=== PATIENT | female | born 1970 | race Caucasian/White ===

== ENCOUNTER 2018-02-02 19:08 | Emergency (ER) | payer SELFPAY ==
[2018-02-02 19:08] VITALS: BP 120/84; PULSE 134; RESP 18; TEMP 36.4; O2SAT 92; BMI 29.9
[2018-02-02] MEDS: Ketamine HCl 500 MG/5 ML Vial 200 MG IV (19:13)
[2018-02-02 19:19] VITALS: O2SAT 100
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
[2018-02-02 19:25] VITALS: BP 146/92; PULSE 117; RESP 13; O2SAT 100
[2018-02-02] MEDS: Cefazolin 1 GM/50 ML BAG IV (19:25)
[2018-02-02 19:27] VITALS: BP 120/84; PULSE 134; RESP 18; O2SAT 92
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
[2018-02-02 19:30] LABS: Absolute Lymphocyte Count 4.43 X10^3/ul (0.83-4.51); Absolute Neutrophil Count 6.5 X10^3/uL (2.0-7.7); Basophil# 0.03 X10^3/uL; Basophil% 0.3 % (0-1); Eosinophil# 0.14 X10^3/uL; Eosinophils% 1.2 % (0-5); Hematocrit 39.7 % (37-47); Hemoglobin 13.3 g/dl (12.0-15.0); Lymphocyte # 4.43 X10^3/ul (4.0); Lymphocyte % 37.9 % (19-41); Mean Corp Hgb Conc 33.5 g/gl (32-36); Mean Corpuscular Hgb 30.4 pg (27.0-32.0); Mean Corpuscular Volume 90.8 fL (81-99); Mean Platelet Vol. 9.6 fl (6.2-12.0); Monocyte% 5.1 % (0-10); Neutrophil # 6.45 X10^3/uL (2.7-7.7); Neutrophil % 55.1 % (47-70); Platelet Count 267 K/mm3 (150-450); RBC Distribution Width CV 13.5 % (11.6-14.6); RBC Distribution Width SD 44.9 fl (35.1-43.9); Red Blood Count 4.37 M/mm3 (4.2-5.4); White Blood Count 11.7 K/mm3 (4.4-11.0)
[2018-02-02] MEDS: Rocuronium Bromide 50 MG/5 ML Vial 100 MG IV (19:32)
[2018-02-02 19:33] LABS: POSITIVE COUNT NO; POSITIVE DIFFERENTIAL NO; POSITIVE MORPHOLOGY NO
[2018-02-02 19:34] LABS: International Normalized Ratio 1.1; Prothrombin Time (Protime)PT. 14.3 SECONDS (11.7-14.9)
[2018-02-02 19:35] LABS: Partial Thromboplast Time 29.2 Seconds (24.1-36.2)
--- NOTE | 2018-02-02 19:38 | ED.RN ---
TDAP ORDER UNABLE TO BE PLACED BY RN OR PHYSICIAN. TDAP GIVEN AT 1917 IN LEFT LEG. LOT# [id number] [id number] 11/19/19
[2018-02-02 19:42] LABS: Alcohol, Blood (Medical)-Serum < 3.0 mg/dL
--- NOTE | 2018-02-02 19:45 | ED.RN ---
NURSE REPORT CALLED TO TAMMY DE LEON AT [facility] ED. DENIES QUESTIONS. UPDATED IN ROUTE VIA AIR WITH BROOKS
[2018-02-02 19:51] LABS: AST(SGOT) 24 U/L (15-37); Alanine Aminotransfer ALT/SGPT 18 U/L (13-56); Albumin, Serum 3.9 g/dL (3.2-5.0); Alkaline Phosphatase 104 U/L (45-117); Anion Gap 10 (5-15); BUN 11 mg/dL (7-18); BUN/Creat Ratio 11.9 RATIO (10-20); Bilirubin, Direct 0.13 mg/dL (0.00-0.30); Calcium,Total 8.8 mg/dL (8.5-10.1); Chloride 106 mmol/L (98-107); Creatinine, Serum 0.92 mg/dL (0.55-1.02); EST Glomerular Filtration Rate 69 mL/min (>60); Est Glom Filt Rate - Afr Amer 83 mL/min (>60); Estimated Creatinine Clearance 59.15 ml/min; Globulin 3.4 g/dL (2.2-4.2); Glucose 120 mg/dL (74-106); Potassium 3.1 mmol/L (3.5-5.1); Protein, Total 7.3 g/dL (6.4-8.2); Sodium Level 138 mmol/L (136-145)
== END 2018-02-02 19:30 | disposition short-term general hospital (02) ==
LOC: ED 19:27
PROVIDERS: Emergency Provider Emergency Medicine
DX: S02.11GA Other fracture of occiput, right side, initial encounter for closed fracture (principal); S06.309A Unspecified focal traumatic brain injury with loss of consciousness of unspecified duration, initial encounter; S36.899A Unspecified injury of other intra-abdominal organs, initial encounter; V29.50XA Motorcycle passenger injured in collision with unspecified motor vehicles in traffic accident, initial encounter; Y93.9 Activity, unspecified; Y92.9 Unspecified place or not applicable; Y99.9 Unspecified external cause status
CPT/HCPCS: 31500; 51702; 80048; 80076; 80320; 85025; 85610; 85730; 90715; 96374; 96375; 99251; 99285; J7030; A4216; G0463; G0480

== ENCOUNTER 2018-02-15 18:20 | Inpatient (IN) | payer MEDICAID, SELFPAY ==
--- NOTE | 2018-02-15 18:20 | DT_ITS ---
This patient was seen during an EMR downtime February 09, 2018 - February 16, 2018. This patient may have a combination of paper and electronic documentation or all paper documentation. All documentation is viewable within the e-chart portion of [facility] for each patient visit.
[2018-02-16 05:59] LABS: Hematocrit 31.9 % (37-47); Hemoglobin 10.3 g/dl (12.0-15.0); Mean Corp Hgb Conc 32.3 g/gl (32-36); Mean Corpuscular Hgb 30.5 pg (27.0-32.0); Mean Corpuscular Volume 94.4 fL (81-99); Mean Platelet Vol. 9.7 fl (6.2-12.0); Platelet Count 691 K/mm3 (150-450); RBC Distribution Width CV 15.5 % (11.6-14.6); RBC Distribution Width SD 50.9 fl (35.1-43.9); Red Blood Count 3.38 M/mm3 (4.2-5.4); White Blood Count 11.9 K/mm3 (4.4-11.0)
[2018-02-16] MEDS: Enoxaparin 30 MG/0.3 ML Syringe SC (06:00)
[2018-02-16 06:28] LABS: ALB/GLOB Ratio 0.8 RATIO (0.9-2.4); AST(SGOT) 18 U/L (15-37); Alanine Aminotransfer ALT/SGPT 23 U/L (13-56); Albumin, Serum 3.2 g/dL (3.2-5.0); Alkaline Phosphatase 175 U/L (45-117); Anion Gap 9 (5-15); BUN 17 mg/dL (7-18); BUN/Creat Ratio 25.3 RATIO (10-20); Calcium,Total 8.8 mg/dL (8.5-10.1); Chloride 104 mmol/L (98-107); Creatinine, Serum 0.67 mg/dL (0.55-1.02); EST Glomerular Filtration Rate 99 mL/min (>60); Est Glom Filt Rate - Afr Amer 120 mL/min (>60); Globulin 3.8 g/dL (2.2-4.2); Glucose 96 mg/dL (74-106); Potassium 4.1 mmol/L (3.5-5.1); Sodium Level 138 mmol/L (136-145)
[2018-02-16 06:42] LABS: Scan Indicated on CBC? Y/N NO
[2018-02-16] MEDS: Amantadine 100 MG Capsule PO ×2 (09:00→13:00)
[2018-02-16] MEDS: Senna/Docusate Sodium 1 Tablet 2 TABLET PO (10:00)
[2018-02-16] MEDS: DULoxetine Hcl 60 MG Capsule PO ×2 (10:00→20:49)
--- NOTE | 2018-02-16 10:15 | PCM.RU.PYE ---
Admission Information Status Changes from Prescreening?: No changes Identified Actual Problem List:: Pain, ALteration in Cmfrt, Cognitve Impr/Memory Loss, Alteration in Sleep, Alteration in Nutrition, Mobility Impaired, Self Care Deficit, Ineffective Communication, Know.Dfct/Disease Process, Know.Dfct of Medicaitons, Ineffect.D/C Plan r/t Psy Potential Problem List:: DVT, Bleeding, Infection, UTI, Aspiration, Falls, Skin Integrity, Depression Risk of Complications DVT: LMWH, RONALD Hose, Sequential Compression Device Bleeding: Monitor Lab Values, Nursing to Teach Precautions for anti-coagulation therapy., Wound, if applicable, to be assessed every shift., Stroke patients assessed for lethargy or change in status. Infection: Clinical Staff to Monitor for S/S of infection:, S/S of infection include fever, redness, warmth, etc. Urinary Tract Infection: Monitor for frequency, burning, discomfort, or incontinence., Nursing will obtain urine sample for urinalysis and C&S when ordered. Aspiration: Clinical staff will monitor for coughing, drooling, congestion., Speech will evaluate swallowing and dsyphasia., Nursing will monitor patient swallowing during meals. Falls: Patient will be evaluated for Fall Precautions, Patient will be placed on Fall Precautions as indicated per protocol. Skin Breakdown: Nursing will assess skin daily using assessment tool., Nursing will place on Skin Breakdown Precautions as indicated. Pain: Clinical staff will assess patient's pain level per protocol., Medications will be given, if needed, and the pain level reassessed., Other methods: Massage, distraction, decrease stimulus, etc. used PRN. Plan of Care Patient requires physician specializing in physical medicine and rehab oversight to provide close medical supervision of rehab issues including: Pain Management, Sleep Problems, Bowel and Bladder, Medical and co-morbidity Management, DVT prophylaxis, Rehabilitation Leadership, Coordination of treatment team Patient needs Physical Therapy: For a minimum of 1 hour, At least 5 out of 7 days Patient needs Physical Therapy to improve:: Mobility, Mobility, Mobility, Strengthening, Transfers, Stretching, ROM, Endurance, Stairs, Gait, Balance Patient needs Occupational Therapy: For a minimum of 1 hour, At least 5 out of 7 days Patient needs Occupational Therapy to improve ADL's incl.: Eating, Grooming, Bathing, Dressing, Toileting, Toilet transfers, Community Reintegration, Higher functioning activities, Household tasks, Adaptive Equipment, Splinting, Other activities as determined Patient requires speech therapy: For a minimum of 1 hour, At least 5 out of 7 days Patient requires speech therapy for: Swallowing, Cognition, Language Skills, Compensatory Strategies Patient requires 24/ Rehabilitation Nursing for: Pain Issues, Identifying and preventing risk factors, Monitoring and reporting current medical conditions, Assisting with ambulation, transfer, and all ADL's, Teaching patients about disease process and medications, Family teaching, Providing safe environment, Bowel and Bladder Issues, Skin integrity, Medication Management Patient needs Deoiling Machine Operator/ Case Management for: Discharge Planning, Arranging Home Equipment or Services, Family Interventions Patient needs Dietary and Nutrition Services for: Adequate Nutrition, Nutritional Supplements, Nutritional Education Goals Patient will remain: free from falls, or injury at time of discharge. Patient will perform bed mobility at: MOD I level of assist. Patient will complete transfers from bed to chair at: MOD I level of assist. Patient will ambulate: 100 feet, with MOD I assist, with LRD Patient will complete upper body dressing at: MOD I level of assist. Patient will complete lower body dressing at: MOD I level of assist. Patient will complete toileting at: MOD I level of assist. Patient will perform bathing at: MOD I level of assist. Patient will complete grooming at: MOD I level of assist. Patient will complete home management skills at: MOD I level of assist. Patient will achieve: 12 stairs, at MOD I assist Patient will have pain level of: of 3 or less Patient's skin will: remain intact, free from infection. Patient will receive: adequate nutrition. Discharge Planning Pt Prognosis for Sig. Practical Improv. w/in Reasonable Time: Good Anticipated D/C Destination: Home with Outpt Therapy Was Preadmission Assessment Accurate?: Yes
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
[2018-02-16] MEDS: oxyCODONE 5 MG Tablet PO (10:30)
[2018-02-16 20:30] VITALS: PULSE 70; RESP 16; O2SAT 96
[2018-02-16] MEDS: traZODone 50 MG Tablet PO (20:49)
[2018-02-17] MEDS: Enoxaparin 30 MG/0.3 ML Syringe SC (05:12)
[2018-02-17 07:35] VITALS: O2SAT 96
[2018-02-17 10:00] VITALS: BP 117/24; PULSE 75; RESP 17; TEMP 37.6; O2SAT 94
[2018-02-17] MEDS: DULoxetine Hcl 60 MG Capsule PO ×2 (10:32→21:37)
[2018-02-17] MEDS: Amantadine 100 MG Capsule PO ×2 (10:32→13:23)
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
--- NOTE | 2018-02-17 14:01 | PN.NEURO_ITS ---
Subjective: Patient sleeping quietly in bed. Easily arousable. Tolerating therapy. Denies any shortness of breath, blurry vision, or double vision. No issues with GI/ . Incision site is well approximated, sutures are C/D/I, open to air. - Physical Exam General: Alert, Oriented x3, Cooperative HEENT: Atraumatic, PERRLA, EOMI, Normocephalic Neck: Supple, No JVD, Negative Carotid Bruits Lungs: Clear to auscultation, Normal air movement Cardiovascular: Regular rate, No murmurs Abdomen: Bowel Sounds Present, Soft, Non Tender Extremities: No edema, Capillary Refill Less than 3 Seconds Skin: No rashes, No breakdown Musculoskeletal: No Tenderness to Palpation of Joints or Extremities Neurological: Cranial nerves II-XII grossly intact Psych/Mental Status: Normal Affect, Appropriate, Alert and oriented to time, place, person, mood and affect Vital Signs Temp Pulse Resp BP Pulse Ox 99.6 F H 75 17 117/24 L 94 02/17/18 10:02/17/18 10:00 02/17/18 10:00 02/17/18 10:00 02/17/18 10:00 Oxygen Delivery Method Room Air Intake and Output for Last 24 Hours 02/15/18 02/16/18 02/17/18 23:59 23:59 23:59 Intake Total 100 / 100 Output Total 500 / 500 Balance -400 / -400 Active Medications Amantadine HCl (Symmetrel) 100 mg PO BID@0900,1300 [facility] Stop: 03/07/18 09:01 Last Admin: 02/17/18 13:23 Dose: 100 mg Bisacodyl (Dulcolax) 10 mg RECTAL .PRN X 1 PRN PRN Reason: Constipation Duloxetine HCl (Cymbalta) 60 mg PO BID [facility] Last Admin: 02/17/18 13:05 Dose: Not Given Enoxaparin Sodium (Lovenox) 30 mg SC DAILY@0600 [facility] Last Admin: 02/17/18 05:12 Dose: 30 mg Hydroxyzine Pamoate (Vistaril Pamoate Capsule) 25 mg PO BID PRN PRN PRN Reason: itching or anxiety Loratadine (Claritin) 10 mg PO DAILY PRN PRN PRN Reason: allergy symptoms Magnesium Hydroxide (Milk Of Magnesia) 30 ml PO .PRN X 1 PRN PRN Reason: Constipation Nicotine (Nicoderm Cq (Pbkc)) 21 mg TRANSDERM. DAILY [facility] Last Admin: 02/17/18 12:29 Dose: 21 mg Oxycodone HCl (Oxyir) 5 - 10 mg PO Q6H PRN PRN PRN Reason: SEVERE PAIN (6-06/17) Stop: 02/22/18 20:45 Last Admin: 02/16/18 10:30 Dose: 5 mg Senna/Docusate Sodium (Senokot-S, Mandi-Colace) 2 tablet PO DAILY [facility] Last Admin: 02/17/18 12:31 Dose: Not Given Trazodone HCl (Desyrel) 50 mg PO QHS [facility] Last Admin: 02/17/18 13:05 Dose: Not Given Medical Necessity - Tobacco Use Smoking Status: Unknown if ever smoked Assessment/Plan Debility s/p multiple trauma, primary deficit is language/cognitive. goal of therapy is restorationism of functional independence - Pt for gait and balance - Ot for adls - Speech therapy - Cognitive - PRN analgesics - Bowel protocol - Dvt prophylaxis: Lovenox, SCDs, Mike hoses - Right Rib Fractures 2-7 and sm rt pneumo - Aggressive Pulmonary toileting, IS Q1 hr while awake - Craniotomy incision site - incision is well approximated, sutures are C/D/I open to air - Hx Tobacco abuse - Nicotine patch, discussion on cessation benefits - Hx Depression - continue Cymbalta
[2018-02-17 20:30] VITALS: BP 116/16; PULSE 76; RESP 15; TEMP 36.9; O2SAT 94
[2018-02-17] MEDS: oxyCODONE 5 MG Tablet PO (20:45)
[2018-02-17] MEDS: traZODone 50 MG Tablet PO (21:37)
--- NOTE | 2018-02-18 02:35 | NURSING ---
Reviewed and agree with CROWNING INSPECTOR documentation and FIMS charting.
[2018-02-18] MEDS: Enoxaparin 30 MG/0.3 ML Syringe SC (05:55)
[2018-02-18] MEDS: oxyCODONE 5 MG Tablet PO ×2 (05:57→22:34)
[2018-02-18 07:00] VITALS: O2SAT 98
[2018-02-18] MEDS: Amantadine 100 MG Capsule PO ×2 (08:46→13:44)
[2018-02-18] MEDS: DULoxetine Hcl 60 MG Capsule PO ×2 (08:46→21:37)
[2018-02-18 09:29] VITALS: BP 99/61; PULSE 91; RESP 16; TEMP 36.6; O2SAT 96
--- NOTE | 2018-02-18 10:44 | PCM.PN.NEU ---
Subjective: Patient seen and examined. No new complaints. Tolerating therapy. Denies any headaches, blurry vision, or double vision. Tolerating regular diet. No issues with GI/. - Physical Exam General: Alert, Oriented x3, Cooperative HEENT: Atraumatic, PERRLA, EOMI, Normocephalic Neck: Supple, No JVD, Negative Carotid Bruits Lungs: Clear to auscultation, Normal air movement Cardiovascular: Regular rate, No murmurs Abdomen: Bowel Sounds Present, Soft, Non Tender Extremities: No edema, Capillary Refill Less than 3 Seconds Skin: No rashes, No breakdown Musculoskeletal: No Tenderness to Palpation of Joints or Extremities Neurological: Cranial nerves II-XII grossly intact Psych/Mental Status: Normal Affect, Appropriate, Alert and oriented to time, place, person, mood and affect Vital Signs Temp Pulse Resp BP Pulse Ox 97.8 F 91 16 99/61 96 02/18/18 09:29 02/18/18 09:29 02/18/18 09:29 02/18/18 09:29 02/18/18 09:29 Oxygen Delivery Method Room Air Weight: 55.1 kg Intake and Output for Last 24 Hours 02/16/18 02/17/18 02/18/18 23:59 23:59 23:59 Intake Total 100 / 100 Output Total 500 / 500 Balance -400 / -400 Active Medications Amantadine HCl (Symmetrel) 100 mg PO BID@0900,1300 [facility] Stop: 03/07/18 09:01 Last Admin: 02/18/18 08:46 Dose: 100 mg Bisacodyl (Dulcolax) 10 mg RECTAL .PRN X 1 PRN PRN Reason: Constipation Duloxetine HCl (Cymbalta) 60 mg PO BID [facility] Last Admin: 02/18/18 08:46 Dose: 60 mg Enoxaparin Sodium (Lovenox) 30 mg SC DAILY@0600 [facility] Last Admin: 02/18/18 05:55 Dose: 30 mg Hydroxyzine Pamoate (Vistaril Pamoate Capsule) 25 mg PO BID PRN PRN PRN Reason: itching or anxiety Loratadine (Claritin) 10 mg PO DAILY PRN PRN PRN Reason: allergy symptoms Magnesium Hydroxide (Milk Of Magnesia) 30 ml PO .PRN X 1 PRN PRN Reason: Constipation Nicotine (Nicoderm Cq (Pbkc)) 21 mg TRANSDERM. DAILY [facility] Last Admin: 02/18/18 08:46 Dose: 21 mg Oxycodone HCl (Oxyir) 5 - 10 mg PO Q6H PRN PRN PRN Reason: SEVERE PAIN (-06/17) Stop: 02/22/18 20:45 Last Admin: 02/18/18 05:57 Dose: 10 mg Senna/Docusate Sodium (Senokot-S, Mandi-Colace) 2 tablet PO DAILY [facility] Last Admin: 02/18/18 08:44 Dose: Not Given Trazodone HCl (Desyrel) 50 mg PO QHS [facility] Last Admin: 02/17/18 21:37 Dose: 50 mg Medical Necessity - Tobacco Use Smoking Status: Unknown if ever smoked Assessment/Plan Debility s/p multiple trauma, primary deficit is language/cognitive. goal of therapy is latter-day of functional independence - Pt for gait and balance - Ot for adls - Speech therapy - Cognitive - PRN analgesics - Bowel protocol - Dvt prophylaxis: Lovenox, SCDs, Mike hoses - Right Rib Fractures 2-7 and sm rt pneumo - Aggressive Pulmonary toileting, IS Q1 hr while awake - Craniotomy incision site - incision is well approximated, sutures are C/D/I open to air - Hx Tobacco abuse - Nicotine patch, discussion on cessation benefits - Hx Depression - continue Cymbalta
--- NOTE | 2018-02-18 10:47 | PN.NEURO_ITS ---
Subjective: Patient seen and examined. No new complaints. Tolerating therapy. Denies any headaches, blurry vision, or double vision. Tolerating regular diet. No issues with GI/. - Physical Exam General: Alert, Oriented x3, Cooperative HEENT: Atraumatic, PERRLA, EOMI, Normocephalic Neck: Supple, No JVD, Negative Carotid Bruits Lungs: Clear to auscultation, Normal air movement Cardiovascular: Regular rate, No murmurs Abdomen: Bowel Sounds Present, Soft, Non Tender Extremities: No edema, Capillary Refill Less than 3 Seconds Skin: No rashes, No breakdown Musculoskeletal: No Tenderness to Palpation of Joints or Extremities Neurological: Cranial nerves II-XII grossly intact Psych/Mental Status: Normal Affect, Appropriate, Alert and oriented to time, place, person, mood and affect Vital Signs Temp Pulse Resp BP Pulse Ox 97.8 F 91 16 99/61 96 02/18/18 09:29 02/18/18 09:29 02/18/18 09:29 02/18/18 09:29 02/18/18 09:29 Oxygen Delivery Method Room Air Weight: 55.1 kg Intake and Output for Last 24 Hours 02/16/18 02/17/18 02/18/18 23:59 23:59 23:59 Intake Total 100 / 100 Output Total 500 / 500 Balance -400 / -400 Active Medications Amantadine HCl (Symmetrel) 100 mg PO BID@0900,1300 [facility] Stop: 03/07/18 09:01 Last Admin: 02/18/18 08:46 Dose: 100 mg Bisacodyl (Dulcolax) 10 mg RECTAL .PRN X 1 PRN PRN Reason: Constipation Duloxetine HCl (Cymbalta) 60 mg PO BID [facility] Last Admin: 02/18/18 08:46 Dose: 60 mg Enoxaparin Sodium (Lovenox) 30 mg SC DAILY@0600 [facility] Last Admin: 02/18/18 05:55 Dose: 30 mg Hydroxyzine Pamoate (Vistaril Pamoate Capsule) 25 mg PO BID PRN PRN PRN Reason: itching or anxiety Loratadine (Claritin) 10 mg PO DAILY PRN PRN PRN Reason: allergy symptoms Magnesium Hydroxide (Milk Of Magnesia) 30 ml PO .PRN X 1 PRN PRN Reason: Constipation Nicotine (Nicoderm Cq (Pbkc)) 21 mg TRANSDERM. DAILY [facility] Last Admin: 02/18/18 08:46 Dose: 21 mg Oxycodone HCl (Oxyir) 5 - 10 mg PO Q6H PRN PRN PRN Reason: SEVERE PAIN (-06/17) Stop: 02/22/18 20:45 Last Admin: 02/18/18 05:57 Dose: 10 mg Senna/Docusate Sodium (Senokot-S, Mandi-Colace) 2 tablet PO DAILY [facility] Last Admin: 02/18/18 08:44 Dose: Not Given Trazodone HCl (Desyrel) 50 mg PO QHS [facility] Last Admin: 02/17/18 21:37 Dose: 50 mg Medical Necessity - Tobacco Use Smoking Status: Unknown if ever smoked Assessment/Plan Debility s/p multiple trauma, primary deficit is language/cognitive. goal of therapy is uatsdin of functional independence - Pt for gait and balance - Ot for adls - Speech therapy - Cognitive - PRN analgesics - Bowel protocol - Dvt prophylaxis: Lovenox, SCDs, Mike hoses - Right Rib Fractures 2-7 and sm rt pneumo - Aggressive Pulmonary toileting, IS Q1 hr while awake - Craniotomy incision site - incision is well approximated, sutures are C/D/I open to air - Hx Tobacco abuse - Nicotine patch, discussion on cessation benefits - Hx Depression - continue Cymbalta
[2018-02-18 21:30] VITALS: BP 102/61; PULSE 79; RESP 16; TEMP 36.9; O2SAT 96
[2018-02-18] MEDS: traZODone 50 MG Tablet PO (21:37)
--- NOTE | 2018-02-18 22:38 | NURSING ---
pt reports a h/a a 10/10 on pain scale, pt denied any visual disturbances, nausea. oxyir given as per order and will monitor pt closely this hs. pt instructed if h/a worsens or has no improvement the doctor will be call for further instructions, rn aware. pt does have a hx of migraines. no change in mental status noted
--- NOTE | 2018-02-18 23:44 | NURSING ---
Reviewed and agree with KINDERGARTEN TEACHER ASSISTANT documentation and FIMS charting.
[2018-02-19] MEDS: Enoxaparin 30 MG/0.3 ML Syringe SC (06:08)
[2018-02-19 06:11] LABS: Hematocrit 32.4 % (37-47); Hemoglobin 10.4 g/dl (12.0-15.0); Mean Corp Hgb Conc 32.1 g/gl (32-36); Mean Corpuscular Hgb 30.3 pg (27.0-32.0); Mean Corpuscular Volume 94.5 fL (81-99); Mean Platelet Vol. 9.2 fl (6.2-12.0); Platelet Count 661 K/mm3 (150-450); RBC Distribution Width CV 15.6 % (11.6-14.6); RBC Distribution Width SD 52.4 fl (35.1-43.9); Red Blood Count 3.43 M/mm3 (4.2-5.4); White Blood Count 8.6 K/mm3 (4.4-11.0)
[2018-02-19 06:17] LABS: Scan Indicated on CBC? Y/N NO
[2018-02-19 07:28] VITALS: BP 100/60; PULSE 84; RESP 16; TEMP 36.7; O2SAT 97
[2018-02-19] MEDS: Lidocaine 5% Patch 1 PATCH TOPICAL ×2 (07:44→07:45)
[2018-02-19] MEDS: DULoxetine Hcl 60 MG Capsule PO ×2 (07:44→20:50)
[2018-02-19] MEDS: Amantadine 100 MG Capsule PO ×2 (08:07→12:22)
--- NOTE | 2018-02-19 13:19 | CASEMGMT ---
Team meeting held. Patient present, no support person present (spouse did come onto unit after meeting and was updated on team meeting information). Patient plans to discharge home with spouse at time of discharge. No discharge date set at this time. Patient to continue with further care and treatment on the Inpatient Rehab Unit. Support given. Will continue to follow. Diana ELIZALDE, SUPERVISOR [employer] MAKING
--- NOTE | 2018-02-19 14:24 | PCM.PN.NEU ---
Subjective: Staffed in team meeting. Family was not at bedside, domestic laundry worker updated the . Questions answered. With Physical therapy, the patient is supervision for bed mobility, and transfers. She is able to walk more than 500 feet with out the use of a device. She has gone up and down a flight of stairs at supervision. Since her admission, her TUG score has dropped by 4 seconds, and her chair raise score has doubled. With Occupational therapy, she is supervision for all her personal care and toileting. With Speech therapy, they are continue to work on her problem areas which involve, sequencing, planning task, and organization skills. With Nursing, no new issues. She will be re-teamed next week on 02/26. - Physical Exam General: Alert, Oriented x3, Cooperative HEENT: Atraumatic, PERRLA, EOMI, Normocephalic Neck: Supple, No JVD, Negative Carotid Bruits Lungs: Clear to auscultation, Normal air movement Cardiovascular: Regular rate, No murmurs Abdomen: Bowel Sounds Present, Soft, Non Tender Extremities: No edema, Capillary Refill Less than 3 Seconds Skin: No rashes, No breakdown Musculoskeletal: No Tenderness to Palpation of Joints or Extremities Neurological: Cranial nerves II-XII grossly intact Psych/Mental Status: Normal Affect, Appropriate, Alert and oriented to time, place, person, mood and affect Vital Signs Temp Pulse Resp BP Pulse Ox 98.0 F 84 16 100/60 97 02/19/18 07:28 02/19/18 07:28 02/19/18 07:28 02/19/18 07:28 02/19/18 07:28 Oxygen Delivery Method Room Air Weight: 55.1 kg Intake and Output for Last 24 Hours 02/17/18 02/18/18 02/19/18 23:59 23:59 23:59 Intake Total 100 / 100 720 / 720 Output Total 500 / 500 Balance -400 / -400 720 / 720 Laboratory Tests Past 24 Hrs 02/19/18 05:30 WBC 8.6 RBC 3.43 L Hgb 10.4 L Hct 32.4 L MCV 94.5 MCH 30.3 MCHC 32.1 RDW 15.6 H RDW Differential 52.4 H Plt Count 661 H MPV 9.2 Active Medications Amantadine HCl (Symmetrel) 100 mg PO BID@0900,1300 [facility] Stop: 03/07/18 09:01 Last Admin: 02/19/18 12:22 Dose: 100 mg Bisacodyl (Dulcolax) 10 mg RECTAL .PRN X 1 PRN PRN Reason: Constipation Duloxetine HCl (Cymbalta) 60 mg PO BID [facility] Last Admin: 02/19/18 07:44 Dose: 60 mg Enoxaparin Sodium (Lovenox) 30 mg SC DAILY@0600 [facility] Last Admin: 02/19/18 06:08 Dose: 30 mg Hydroxyzine Pamoate (Vistaril Pamoate Capsule) 25 mg PO BID PRN PRN PRN Reason: itching or anxiety Lidocaine (Lidoderm Patch) 1 patch TOPICAL DAILY [facility] PRN Reason: Protocol Last Admin: 02/19/18 07:44 Dose: 1 patch Lidocaine (Lidoderm Patch) 1 patch TOPICAL DAILY [facility] PRN Reason: Protocol Last Admin: 02/19/18 07:45 Dose: 1 patch Loratadine (Claritin) 10 mg PO DAILY PRN PRN PRN Reason: allergy symptoms Magnesium Hydroxide (Milk Of Magnesia) 30 ml PO .PRN X 1 PRN PRN Reason: Constipation Nicotine (Nicoderm Cq (Pbkc)) 21 mg TRANSDERM. DAILY [facility] Last Admin: 02/19/18 07:44 Dose: 21 mg Oxycodone HCl (Oxyir) 5 - 10 mg PO Q6H PRN PRN PRN Reason: SEVERE PAIN (6-10/10) Stop: 02/22/18 20:45 Last Admin: 02/18/18 22:34 Dose: 10 mg Senna/Docusate Sodium (Senokot-S, Mandi-Colace) 2 tablet PO DAILY [facility] Last Admin: 02/19/18 07:43 Dose: Not Given Trazodone HCl (Desyrel) 50 mg PO QHS [facility] Last Admin: 02/18/18 21:37 Dose: 50 mg Medical Necessity - Tobacco Use Smoking Status: Unknown if ever smoked Assessment/Plan Debility s/p multiple trauma, primary deficit is language/cognitive. goal of therapy is orthodox of functional independence - Pt for gait and balance - Ot for adls - Speech therapy - Cognitive - PRN analgesics - Bowel protocol - Dvt prophylaxis: Lovenox, SCDs, Mike hoses - Right Rib Fractures 2-7 and sm rt pneumo - Aggressive Pulmonary toileting, IS Q1 hr while awake - Craniotomy incision site - incision is well approximated, sutures are C/D/I open to air - Hx Tobacco abuse - Nicotine patch, discussion on cessation benefits - Hx Depression - continue Cooper
--- NOTE | 2018-02-19 14:40 | PN.NEURO_ITS ---
Subjective: Staffed in team meeting. Family was not at bedside, whiting can worker updated the . Questions answered. With Physical therapy, the patient is supervision for bed mobility, and transfers. She is able to walk more than 500 feet with out the use of a device. She has gone up and down a flight of stairs at supervision. Since her admission, her TUG score has dropped by 4 seconds, and her chair raise score has doubled. With Occupational therapy, she is supervision for all her personal care and toileting. With Speech therapy, they are continue to work on her problem areas which involve, sequencing, planning task, and organization skills. With Nursing, no new issues. She will be re- teamed next week on 02/26. - Physical Exam General: Alert, Oriented x3, Cooperative HEENT: Atraumatic, PERRLA, EOMI, Normocephalic Neck: Supple, No JVD, Negative Carotid Bruits Lungs: Clear to auscultation, Normal air movement Cardiovascular: Regular rate, No murmurs Abdomen: Bowel Sounds Present, Soft, Non Tender Extremities: No edema, Capillary Refill Less than 3 Seconds Skin: No rashes, No breakdown Musculoskeletal: No Tenderness to Palpation of Joints or Extremities Neurological: Cranial nerves II-XII grossly intact Psych/Mental Status: Normal Affect, Appropriate, Alert and oriented to time, place, person, mood and affect Vital Signs Temp Pulse Resp BP Pulse Ox 98.0 F 84 16 100/60 97 02/19/18 07:28 02/19/18 07:28 02/19/18 07:28 02/19/18 07:28 02/19/18 07:28 Oxygen Delivery Method Room Air Weight: 55.1 kg Intake and Output for Last 24 Hours 02/17/18 02/18/18 02/19/18 23:59 23:59 23:59 Intake Total 100 / 100 720 / 720 Output Total 500 / 500 Balance -400 / -400 720 / 720 Laboratory Tests Past 24 Hrs 02/19/18 05:30 WBC 8.6 RBC 3.43 L Hgb 10.4 L Hct 32.4 L MCV 94.5 MCH 30.3 MCHC 32.1 RDW 15.6 H RDW Differential 52.4 H Plt Count 661 H MPV 9.2 Active Medications Amantadine HCl (Symmetrel) 100 mg PO BID@0900,1300 [facility] Stop: 03/07/18 09:01 Last Admin: 02/19/18 12:22 Dose: 100 mg Bisacodyl (Dulcolax) 10 mg RECTAL .PRN X 1 PRN PRN Reason: Constipation Duloxetine HCl (Cymbalta) 60 mg PO BID [facility] Last Admin: 02/19/18 07:44 Dose: 60 mg Enoxaparin Sodium (Lovenox) 30 mg SC DAILY@0600 [facility] Last Admin: 02/19/18 06:08 Dose: 30 mg Hydroxyzine Pamoate (Vistaril Pamoate Capsule) 25 mg PO BID PRN PRN PRN Reason: itching or anxiety Lidocaine (Lidoderm Patch) 1 patch TOPICAL DAILY [facility] PRN Reason: Protocol Last Admin: 02/19/18 07:44 Dose: 1 patch Lidocaine (Lidoderm Patch) 1 patch TOPICAL DAILY [facility] PRN Reason: Protocol Last Admin: 02/19/18 07:45 Dose: 1 patch Loratadine (Claritin) 10 mg PO DAILY PRN PRN PRN Reason: allergy symptoms Magnesium Hydroxide (Milk Of Magnesia) 30 ml PO .PRN X 1 PRN PRN Reason: Constipation Nicotine (Nicoderm Cq (Pbkc)) 21 mg TRANSDERM. DAILY [facility] Last Admin: 02/19/18 07:44 Dose: 21 mg Oxycodone HCl (Oxyir) 5 - 10 mg PO Q6H PRN PRN PRN Reason: SEVERE PAIN (6-10/10) Stop: 02/22/18 20:45 Last Admin: 02/18/18 22:34 Dose: 10 mg Senna/Docusate Sodium (Senokot-S, Mandi-Colace) 2 tablet PO DAILY [facility] Last Admin: 02/19/18 07:43 Dose: Not Given Trazodone HCl (Desyrel) 50 mg PO QHS [facility] Last Admin: 02/18/18 21:37 Dose: 50 mg Medical Necessity - Tobacco Use Smoking Status: Unknown if ever smoked Assessment/Plan Debility s/p multiple trauma, primary deficit is language/cognitive. goal of therapy is jew of functional independence - Pt for gait and balance - Ot for adls - Speech therapy - Cognitive - PRN analgesics - Bowel protocol - Dvt prophylaxis: Lovenox, SCDs, Mike hoses - Right Rib Fractures 2-7 and sm rt pneumo - Aggressive Pulmonary toileting, IS Q1 hr while awake - Craniotomy incision site - incision is well approximated, sutures are C/D/I open to air - Hx Tobacco abuse - Nicotine patch, discussion on cessation benefits - Hx Depression - continue Cooper
[2018-02-19] MEDS: traZODone 50 MG Tablet PO (20:50)
[2018-02-19 21:22] VITALS: BP 100/60; PULSE 81; RESP 16; TEMP 37.3; O2SAT 99
[2018-02-20] MEDS: Enoxaparin 30 MG/0.3 ML Syringe SC (06:04)
[2018-02-20 08:17] VITALS: BP 110/66; PULSE 100; RESP 16; TEMP 37.4; O2SAT 96
[2018-02-20] MEDS: Amantadine 100 MG Capsule PO ×2 (09:12→12:37)
[2018-02-20] MEDS: DULoxetine Hcl 60 MG Capsule PO ×2 (09:12→20:33)
[2018-02-20] MEDS: Lidocaine 5% Patch 1 PATCH TOPICAL ×3 (09:13→09:16)
[2018-02-20 20:18] VITALS: BP 107/66; PULSE 82; RESP 17; TEMP 36.9; O2SAT 95
[2018-02-20] MEDS: oxyCODONE 5 MG Tablet PO (20:32)
[2018-02-20] MEDS: traZODone 50 MG Tablet PO (20:32)
[2018-02-21] MEDS: Enoxaparin 30 MG/0.3 ML Syringe SC (06:16)
--- NOTE | 2018-02-21 06:55 | NURSING ---
At HS pt found oob multiple times. Reinstructed to call staff when needing to get oob; Call light in place. Called for assist with transfer during night; This am found out of chair without calling for help. Stable on feet. Reinstructed to call for transfers.
[2018-02-21] MEDS: DULoxetine Hcl 60 MG Capsule PO ×2 (08:59→20:47)
[2018-02-21] MEDS: Amantadine 100 MG Capsule PO ×2 (08:59→14:09)
[2018-02-21] MEDS: Lidocaine 5% Patch 1 PATCH TOPICAL ×3 (09:00→09:25)
[2018-02-21 09:12] VITALS: BP 101/55; PULSE 78; RESP 16; TEMP 37.1; O2SAT 98
--- NOTE | 2018-02-21 15:22 | PN.NEURO_ITS ---
Subjective: No new complaints. Tolerating therapies. Tolerating p.o. GI or complaints. Reports her chest pain from her rib fractures is slowly improving, lidocaine patch has helped. - Physical Exam General: Alert, Oriented x3, Cooperative, No apparent distress Neurological: Cranial nerves II-XII grossly intact Psych/Mental Status: Flat Affect Vital Signs Temp Pulse Resp BP Pulse Ox 37.1 C 78 16 101/55 L 98 02/21/18 09:12 02/21/18 09:12 02/21/18 09:12 02/21/18 09:12 02/21/18 09:12 Oxygen Delivery Method Room Air Weight: 55.1 kg Intake and Output for Last 24 Hours 02/19/18 02/20/18 02/21/18 23:59 23:59 23:59 Intake Total 720 / 720 900 / 900 240 / 240 Balance 720 / 720 900 / 900 240 / 240 Current Medications Generic Name Dose Route Start Last Admin Trade Name Freq PRN Reason Stop Dose Admin Amantadine HCl 100 mg 02/16/18 09:00 02/21/18 14:09 Symmetrel PO 03/07/18 09:01 100 mg BID@0900,1300 [facility] Administration Bisacodyl 10 mg 02/15/18 22:49 Dulcolax RECTAL .PRN X 1 PRN Constipation Duloxetine HCl 60 mg 02/15/18 22:00 02/21/18 08:59 Cymbalta PO 60 mg BID [facility] Administration Enoxaparin Sodium 30 mg 02/16/18 06:00 02/21/18 06:16 Lovenox SC 30 mg DAILY@0600 [facility] Administration Hydroxyzine Pamoate 25 mg 02/15/18 20:47 Vistaril Pamoate Capsule PO BID PRN PRN itching or anxiety Lidocaine 1 patch 02/19/18 10:00 02/21/18 09:20 Lidoderm Patch TOPICAL 1 patch DAILY [facility] Administration Protocol Lidocaine 1 patch 02/19/18 10:00 02/21/18 09:25 Lidoderm Patch TOPICAL 1 patch DAILY [facility] Administration Protocol Loratadine 10 mg 02/15/18 20:46 Claritin PO DAILY PRN PRN allergy symptoms Magnesium Hydroxide 30 ml 02/15/18 22:49 Milk Of Magnesia PO .PRN X 1 PRN Constipation Nicotine 21 mg 02/16/18 10:00 02/21/18 08:59 Nicoderm Cq ([facility]) TRANSDERM. 21 mg DAILY [facility] Administration Oxycodone HCl 5 - 10 mg 02/15/18 20:44 02/20/18 20:32 Oxyir PO 02/22/18 20:45 10 mg Q6H PRN PRN Administration SEVERE PAIN (-06/17) Senna/Docusate Sodium 2 tablet 02/16/18 10:00 02/21/18 08:49 Senokot-S, Mandi-Colace PO Not Given DAILY [facility] Trazodone HCl 50 mg 02/15/18 22:00 02/20/18 20:32 Desyrel PO 50 mg QHS [facility] Administration Medical Necessity - Tobacco Use Smoking Status: Unknown if ever smoked Assessment/Plan debility s/p mult trauma, primary deficit is language/cognitive. goal of therapy is jew of functional independence pt for gait and balance ot for adls speech therapy: Cognition continues to improve prn analgesics bowel protocol dvt prophylaxis: lovenox
[2018-02-21 19:33] VITALS: BP 122/74; PULSE 79; RESP 18; TEMP 37.1; O2SAT 98
--- NOTE | 2018-02-21 20:37 | NURSING ---
Family in pt room with door closed by nurse and pt found in room in tears. Inquiring how pt was, pt shook her head and said she couldn't talk about it as it wouldn't do any good anyhow. Pt visibly upset. Nurse attempted to console, giving pt time to compose. With shoulders shaking, pt unable to express reasons for despair. Staff will continue to monitor.
[2018-02-21] MEDS: traZODone 50 MG Tablet PO (20:47)
--- NOTE | 2018-02-21 21:15 | NURSING ---
Pt confided in nurse. Pt states that her family informed her that her is being unfaithful and that the woman he is sleeping with has been at her house since the pt has been in the hospital. Pt is visibly shaken and doesn't know what to do. This nurse attempted to comfort pt and allow her to express her feelings. Pt is weeping. Nurse advised pt that her recovery is very important to all of us and if she could just wait till morning to reevaluate her predicament, she could have time to make suitable plans. Pt sitting in bed with phone in her hand
[2018-02-22] MEDS: Enoxaparin 30 MG/0.3 ML Syringe SC (06:53)
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
[2018-02-22 08:30] VITALS: BP 108/71; PULSE 93; RESP 18; TEMP 36.8; O2SAT 95
[2018-02-22] MEDS: Lidocaine 5% Patch 1 PATCH TOPICAL ×2 (09:01→09:05)
[2018-02-22] MEDS: DULoxetine Hcl 60 MG Capsule PO ×2 (09:02→21:15)
[2018-02-22] MEDS: Amantadine 100 MG Capsule PO ×2 (09:02→14:41)
[2018-02-22] MEDS: LORazepam 1 MG Tablet PO (09:32)
[2018-02-22] MEDS: traZODone 50 MG Tablet PO (21:15)
[2018-02-22 21:22] VITALS: BP 101/65; PULSE 77; RESP 18; TEMP 36.8; O2SAT 99
[2018-02-23] MEDS: Enoxaparin 30 MG/0.3 ML Syringe SC (05:54)
[2018-02-23 07:47] VITALS: BP 104/68; PULSE 78; RESP 18; TEMP 36.7; O2SAT 99
[2018-02-23] MEDS: Senna/Docusate Sodium 1 Tablet 2 TABLET PO (07:59)
[2018-02-23] MEDS: DULoxetine Hcl 60 MG Capsule PO (07:59)
[2018-02-23] MEDS: Lidocaine 5% Patch 1 PATCH TOPICAL ×2 (07:59)
[2018-02-23] MEDS: Amantadine 100 MG Capsule PO (07:59)
--- NOTE | 2018-02-23 09:57 | NURSING ---
spoke with dr harmon's nurse jesse mckeon to d/c sutures today 02/23/2018.
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
--- NOTE | 2018-02-23 10:22 | NURSING ---
sutures d/c to scalp. incision without redness or drainage.
--- NOTE | 2018-02-23 10:30 | CASEMGMT ---
Team meeting held. Patient present as well as patient spouse. Patient requesting for discharge date to be set for 02/23/18, team is agreeable to discharge date. Patient plans to discharge home with spouse. Speech therapy recommending for patient to have continued services through outpatient speech therapy services. Patient is agreeable to recommendation and requesting for outpatient speech therapy services to be set up through [facility]. Patient aware that an order will be faxed to [facility] and then [facility] will contact patient to set up appointment. Patient spouse plans to provide transportation home for patient at time of discharge. Patient reporting to have all needed durable medical equipment already set up within the home. Support given. Order for outpatient speech therapy faxed to [facility]. Proposed discharge date: 02/23/18 PLAN: Discharge home with spouse and outpatient speech therapy. Diana ELIZALDE, SET PAINTER
--- NOTE | 2018-02-23 11:04 | NURSING ---
both spouse and patient verbalized understanding of d/c instructions. patient discharged home with spouse. independent with all needs.
== END 2018-02-23 11:06 | disposition home or self-care (01) | DRG 249 ==
PROVIDERS: Nurse Practitioner Acute Care; Admitting Provider Psychiatry & Neurology Neurology; Visit Provider Internal Medicine
DX: S02.0XXD Fracture of vault of skull, subsequent encounter for fracture with routine healing (principal); S22.41XD Multiple fractures of ribs, right side, subsequent encounter for fracture with routine healing; V49.9XXD Car occupant (driver) (passenger) injured in unspecified traffic accident, subsequent encounter; F32.9 Major depressive disorder, single episode, unspecified; Z72.0 Tobacco use; S06.5X9D Traumatic subdural hemorrhage with loss of consciousness of unspecified duration, subsequent encounter
CPT/HCPCS: 36415; 80053; 85027; 92507; 92523; 97110; 97116; 97162; 97166; 97530; 97535

== ENCOUNTER 2018-10-01 15:00 | Outpatient (RCR) | payer MEDICAID, SELFPAY ==
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
--- NOTE | 2018-10-01 14:42 | HP.PT.NRP ---
HP - Discharge Summary (1) - Patient Information MARLINE LACKEY was seen in my office for initial evaluation on 03/27/18. The following Plan of Care was established for this patient: Initial Frequency: 2x /Week Initial Duration: 4-6 Weeks - Anticipated Interventions Patient/Client Instruction: Educate patient on: Condition, Plan of Care, Risk Factors, Benefits of Fitness Program For the Purpose of:: To foster healthy habits, To improve decision making, To facilitate caregiver knowledge, To improve self management, To prevent re-injury, To improve ability to perform tasks related to life management, To improve tolerance to ADL's Therapeutic Exercise to Include: Strength training, Power training, Balance training, Postural training, Flexibilty training, Active ROM, Dynamic Lumbar Stabilization For the Purpose of:: To decrease pain, To increase ROM, To improve health of tissue, To decrease soft tissue restriction, To increase flexibility/ROM, To improve balance, To improve safety with gait, To assume or resume ADL's, To reduce risk of recurrence, To improve safety This patient was last seen in our office 05/28/18. Pertinent comments regarding their Physical therapy will appear below: Pt. was seen for her balance and functional mobility after sustaining a subdural hematoma. Pt. progressed well with her balance, but complained mostly of R arm pain. Pt. was ahving unchanged R arm pain even at our last visit. Pt. did not attend her last few visits and has not been seenin severall months. Pt. will be DC from PT at this point in time. At this point I will be discontinuing this patient from physical therapy. I would be happy to see this patient again in the future if found appropriate by the physician. Thank you! Harvey Whitfield, TAMMY
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
== END 2018-10-01 19:00 | disposition home or self-care (01) ==
LOC: SP 15:00
DX: S06.5X9D Traumatic subdural hemorrhage with loss of consciousness of unspecified duration, subsequent encounter (principal)
CPT/HCPCS: 92507; 92523; 97014; 97110; 97162; 97165; 97530; 97535; G0283